=== PATIENT | male | born 1960 | race African-American/Black ===

== ENCOUNTER 2018-02-26 02:50 | Emergency (ER) | payer OTHER ==
[~2018-02-26] VITALS: Ht 172.7 cm; Wt 72.7 kg
[~2018-02-26 02:50] MED LIST: ALPR0.5T8 PO; AMLO-512 PO; ASPI81TA87 PO; ENAL20 PO; HUMLIS7525 SQ; INSNOV SQ
[2018-02-26 03:04] LABS: GLUCOSE,POINT OF CARE 130 MG/DL (70-110)
[2018-02-26] MEDS: KETOROLAC TROMETHAMINE 60 MG/2 ML VIAL IM ONE (05:23)
[2018-02-26 06:50] VITALS: BP 132/80
== END 2018-02-26 07:05 | disposition home or self-care (01) ==
LOC: EMS 02:50
DX: M25.551 Pain in right hip (principal); M25.552 Pain in left hip; R31.9 Hematuria, unspecified; F17.210 Nicotine dependence, cigarettes, uncomplicated; E11.9 Type 2 diabetes mellitus without complications; I10 Essential (primary) hypertension; Z88.2 Allergy status to sulfonamides; Z79.4 Long term (current) use of insulin
CPT/HCPCS: 81002; 82962; 96372; 99283; 99406; J1885

== ENCOUNTER 2019-03-10 21:42 | Emergency (ER) | payer OTHER ==
[~2019-03-10] VITALS: Ht 172.7 cm; Wt 63.6 kg
[~2019-03-10 21:42] MED LIST changes: -AMLO-512 PO; +AMLO10TA7 PO
[2019-03-10 22:04] LABS: GLUCOSE,POINT OF CARE 135 MG/DL (70-110)
[2019-03-10] MEDS ORDERED: ACETAMINOPHEN 325 MG TABLET PO ONE (22:15)
[2019-03-10 23:02] VITALS: BP 139/88
== END 2019-03-10 23:58 | disposition left against medical advice (07) ==
LOC: EMS 21:46
DX: R07.89 Other chest pain (principal); E11.9 Type 2 diabetes mellitus without complications; I10 Essential (primary) hypertension; F20.9 Schizophrenia, unspecified; F31.9 Bipolar disorder, unspecified; F41.9 Anxiety disorder, unspecified; F17.210 Nicotine dependence, cigarettes, uncomplicated; Z79.899 Other long term (current) drug therapy; Z79.4 Long term (current) use of insulin; Z88.2 Allergy status to sulfonamides
CPT/HCPCS: 93005; 99406

== ENCOUNTER 2022-08-02 11:43 | Inpatient (IN) | payer MEDICAID, OTHER ==
[~2022-08-02] VITALS: Ht 167.6 cm; Wt 49.0 kg
[~2022-08-02 11:43] MED LIST changes: +ALPR-707 PO; -ALPR0.5T8 PO; +AMLO-258 PO; -AMLO10TA7 PO
[2022-08-02] MEDS ORDERED: HALOPERIDOL LACTATE 5 MG/ML VIAL IM ONE (13:00)
[2022-08-02] MEDS ORDERED: DiphenhydrAMINE HCL 50 MG/ML VIAL IM ONE (13:00)
[2022-08-02] MEDS ORDERED: LORazepam 2 MG/ML VIAL IM ONE (13:00)
[2022-08-02 13:43] LABS: BASOPHILS % (AUTO) 0.4 % (0.0-2.0); EOSINOPHILS % (AUTO) 0.1 % (1.0-6.0); HEMATOCRIT 27.9 % (41-53); LYMPHOCYTES # (AUTO) 1.5 K/uL (1.0-4.8); LYMPHOCYTES % (AUTO) 13.7 % (22.0-44.0); MEAN CORPUSCULAR HEMOGLOBIN 27.7 pg (26.0-34.0); MEAN CORPUSCULAR HGB CONC 32.2 G/dL (31.0-37.0); MEAN CORPUSCULAR VOLUME 86 fL (80-100); MONOCYTES % (AUTO) 8.8 % (2.0-9.0); NEUTROPHILS # (AUTO) 8.6 K/uL (1.8-7.7); PLATELET COUNT (AUTO) 440 K/uL (150-450); RED BLOOD CELL COUNT(AUTO) 3.25 MIL/uL (4.50-5.90); RED CELL DISTRIBUTION WIDTH 15.8 % (11.5-14.5)
[2022-08-02 13:54] LABS: ANION GAP 8 mmol/L (8-16); CARBON DIOXIDE 26 mmol/L (22-29); CHLORIDE 107 mmol/L (98-107); CREATININE 1.72 mg/dL (0.60-1.30); GLOMERULAR FILTR. RATE CALC 49 mL/min (>60); GLUCOSE,RANDOM 83 mg/dL (70-110); POTASSIUM 4.3 mmol/L (3.5-5.1); SODIUM SERUM 141 mmol/L (136-145); UREA NITROGEN, BLOOD 44 mg/dL (7-18)
[2022-08-02 14:00] LABS: ALANINE AMINOTRANSFERASE 56 U/L (12-78); ALBUMIN 2.7 g/dL (3.4-5.0); ALKALINE PHOSPHATASE 282 U/L (46-116); ASPARTATE AMINOTRANSFERASE 78 U/L (15-37); BILIRUBIN,TOTAL 0.5 mg/dL (0.1-1.0); TOTAL PROTEIN, SERUM 7.3 g/dL (6.4-8.2)
[2022-08-02 14:12] LABS: COVID AG,FIA SOURCE NASAL SWAB
[2022-08-02 19:11] VITALS: BP 146/102
[2022-08-02 20:22] VITALS: BP 102/75
[2022-08-03] MEDS ORDERED: DOCUSATE SODIUM 100 MG CAPSULE PO PRN (07:15)
[2022-08-03] MEDS ORDERED: MAGNESIUM HYDROXIDE SUSPENSION 30 ML UDCUP PO PRN (07:15)
[2022-08-03] MEDS ORDERED: LOPERAMIDE HCL 2 MG CAPSULE PO PRN (07:15)
[2022-08-03] MEDS ORDERED: OMEPRAZOLE 20 MG CAPSULE PO PRN (07:15)
[2022-08-03] MEDS ORDERED: CloNIDine HCL 0.1 MG TABLET PO PRN (07:15)
[2022-08-03] MEDS ORDERED: BENZOCAINE/MENTHOL LOZENGE PO PRN (07:15)
[2022-08-03] MEDS ORDERED: PETROLATUM,WHITE 28 GM JELLY TP PRN (07:15)
[2022-08-03] MEDS ORDERED: BACITRACIN 28 GM OINTMENT TP PRN (07:15)
[2022-08-03] MEDS ORDERED: ALBUTEROL SULFATE HFA 90 MCG/PUFF 8 GM INHALER IH PRN (07:15)
[2022-08-03] MEDS ORDERED: ONDANSETRON HCL 4 MG TABLET PO PRN (07:15)
[2022-08-03] MEDS ORDERED: MAG HYDROX/AL HYDROX/SIMETH ES 30 ML SUSPENSION UDCUP PO PRN (07:15)
[2022-08-03] MEDS ORDERED: ACETAMINOPHEN 325 MG TABLET PO PRN (07:15)
[2022-08-03] MEDS: AmLODIPine BESYLATE 10 MG TABLET PO SCH (08:35)
[2022-08-03] MEDS: ENALAPRIL MALEATE 20 MG TABLET PO SCH (08:35)
[2022-08-03] MEDS: BACITRACIN 28 GM OINTMENT TP SCH (08:35)
[2022-08-03] MEDS: LORazepam 2 MG TABLET PO PRN (20:24)
[2022-08-03 20:28] VITALS: BP 104/62
[2022-08-04] MEDS: AmLODIPine BESYLATE 10 MG TABLET PO SCH (08:37)
[2022-08-04] MEDS: ENALAPRIL MALEATE 20 MG TABLET PO SCH (08:37)
[2022-08-04] MEDS: BACITRACIN 28 GM OINTMENT TP SCH (08:38)
[2022-08-04 09:35] VITALS: BP 139/89
[2022-08-04] MEDS: LORazepam 2 MG TABLET PO PRN (12:31)
[2022-08-04 20:00] VITALS: BP 108/64
[2022-08-04] MEDS: DIVALPROEX SODIUM 500 MG DR TABLET PO SCH (20:52)
[2022-08-04] MEDS: RisperiDONE 3 MG TABLET PO SCH (20:52)
[2022-08-05] MEDS: DIVALPROEX SODIUM 500 MG DR TABLET PO SCH ×2 (08:18→21:09)
[2022-08-05] MEDS: AmLODIPine BESYLATE 10 MG TABLET PO SCH (08:19)
[2022-08-05] MEDS: ENALAPRIL MALEATE 20 MG TABLET PO SCH (08:19)
[2022-08-05] MEDS: IBUPROFEN 600 MG TABLET PO PRN (08:19)
[2022-08-05] MEDS: RisperiDONE 3 MG TABLET PO SCH ×2 (08:19→21:09)
[2022-08-05] MEDS: BACITRACIN 28 GM OINTMENT TP SCH (08:21)
[2022-08-05 08:22] VITALS: BP 112/79
[2022-08-05] MEDS ORDERED: GLUCAGON,HUMAN RECOMBINANT 1 MG VIAL IM PRN (10:15)
[2022-08-05] MEDS ORDERED: INSULIN REGULAR, HUMAN 100 UNITS/ML SQ SCH (10:15)
[2022-08-05 10:16] LABS: GLUCOMETER DEV NAME(LOC) BV3N.; GLUCOSE,POINT OF CARE 555 MG/DL (70-110)
[2022-08-05] MEDS ORDERED: INSULIN LISPRO 100 UNITS/ML SQ ONE ×2 (10:30→15:15)
[2022-08-05 11:31] LABS: GLUCOMETER DEV NAME(LOC) BV3N.; GLUCOSE,POINT OF CARE 451 MG/DL (70-110)
[2022-08-05] MEDS: INSULIN LISPRO 100 UNITS/ML SQ PRN ×2 (12:10→21:16)
[2022-08-05] MEDS: HALOPERIDOL 5 MG TABLET PO PRN (17:06)
[2022-08-05 17:11] LABS: GLUCOMETER DEV NAME(LOC) BV3N.; GLUCOSE,POINT OF CARE 100 MG/DL (70-110)
[2022-08-05 20:29] VITALS: BP 108/67
[2022-08-05] MEDS ORDERED: INSULIN GLARGINE,HUM.REC.ANLOG 100 UNITS/ML SQ SCH (21:00)
[2022-08-05] MEDS: INSULIN GLARGINE,HUM.REC.ANLOG 100 UNITS/ML SQ SCH (21:17)
[2022-08-05 21:36] LABS: GLUCOMETER DEV NAME(LOC) BV3N.; GLUCOSE,POINT OF CARE 422 MG/DL (70-110)
[2022-08-06 06:11] LABS: GLUCOMETER DEV NAME(LOC) BV3N.; GLUCOSE,POINT OF CARE 159 MG/DL (70-110)
[2022-08-06] MEDS: INSULIN LISPRO 100 UNITS/ML SQ PRN ×3 (06:18→20:36)
[2022-08-06] MEDS: DIVALPROEX SODIUM 500 MG DR TABLET PO SCH ×2 (08:19→20:20)
[2022-08-06] MEDS: AmLODIPine BESYLATE 10 MG TABLET PO SCH (08:19)
[2022-08-06] MEDS: RisperiDONE 3 MG TABLET PO SCH ×2 (08:19→20:20)
[2022-08-06] MEDS: BACITRACIN 28 GM OINTMENT TP SCH (08:20)
[2022-08-06] MEDS: ENALAPRIL MALEATE 20 MG TABLET PO SCH (08:20)
[2022-08-06 10:11] VITALS: BP 112/64
[2022-08-06] MEDS: LACTOBAC ACID/BULG/BIFID/THERM TABLET PO SCH (14:00)
[2022-08-06] MEDS: CEPHALEXIN MONOHYDRATE 500 MG CAPSULE PO SCH ×2 (16:19→20:20)
[2022-08-06 16:26] LABS: GLUCOMETER DEV NAME(LOC) BV3N.; GLUCOSE,POINT OF CARE 501 MG/DL (70-110)
[2022-08-06] MEDS: LORazepam 2 MG TABLET PO PRN (20:33)
[2022-08-06] MEDS: ZOLPIDEM TARTRATE 10 MG TABLET PO PRN (20:33)
[2022-08-06] MEDS: INSULIN GLARGINE,HUM.REC.ANLOG 100 UNITS/ML SQ SCH (20:37)
[2022-08-06 21:16] LABS: GLUCOMETER DEV NAME(LOC) BV3N.; GLUCOSE,POINT OF CARE 235 MG/DL (70-110)
[2022-08-06] MEDS: TraMADol HCL 50 MG TABLET PO PRN (21:46)
[2022-08-07 05:16] LABS: GLUCOMETER DEV NAME(LOC) BV3N.; GLUCOSE,POINT OF CARE 197 MG/DL (70-110)
[2022-08-07] MEDS: INSULIN LISPRO 100 UNITS/ML SQ PRN (06:23)
[2022-08-07 07:46] LABS: ALANINE AMINOTRANSFERASE 43 U/L (12-78); ALBUMIN 2.3 g/dL (3.4-5.0); ALKALINE PHOSPHATASE 245 U/L (46-116); ANION GAP 10 mmol/L (8-16); ASPARTATE AMINOTRANSFERASE 35 U/L (15-37); BILIRUBIN,TOTAL 0.3 mg/dL (0.1-1.0); CALCIUM, TOTAL 8.8 mg/dL (8.8-10.5); CARBON DIOXIDE 23 mmol/L (22-29); CHLORIDE 104 mmol/L (98-107); CHOL/HDL RATIO 1.7 (4.2-7.3); CHOLESTEROL 137 mg/dL (131-200); CREATININE 1.35 mg/dL (0.60-1.30); FREE T4 (FREE THYROXINE) 1.17 ng/dL (0.76-1.46); GLOMERULAR FILTR. RATE CALC > 60 mL/min (>60); GLUCOSE,RANDOM 183 mg/dL (70-110); HDL CHOLESTEROL 81 mg/dL (40-60); LDL CHOL (CALC.) 50 mg/dL (0-130); PHOSPHORUS 3.3 mg/dL (2.5-4.9); POTASSIUM 4.3 mmol/L (3.5-5.1); SODIUM SERUM 137 mmol/L (136-145); THYROID STIMULATING HORMONE 4.18 uIU/mL (0.36-3.74); TOTAL PROTEIN, SERUM 7.2 g/dL (6.4-8.2); TRIGLYCERIDES 29 mg/dL (15-150); UREA NITROGEN, BLOOD 34 mg/dL (7-18)
[2022-08-07] MEDS: BACITRACIN 28 GM OINTMENT TP SCH (08:21)
[2022-08-07] MEDS: ENALAPRIL MALEATE 20 MG TABLET PO SCH (08:21)
[2022-08-07] MEDS: RisperiDONE 3 MG TABLET PO SCH ×2 (08:21→20:09)
[2022-08-07] MEDS: LACTOBAC ACID/BULG/BIFID/THERM TABLET PO SCH (08:21)
[2022-08-07] MEDS: DIVALPROEX SODIUM 500 MG DR TABLET PO SCH ×2 (08:21→20:09)
[2022-08-07] MEDS: AmLODIPine BESYLATE 10 MG TABLET PO SCH (08:21)
[2022-08-07] MEDS: CEPHALEXIN MONOHYDRATE 500 MG CAPSULE PO SCH ×4 (08:21→20:09)
[2022-08-07 09:21] VITALS: BP 138/78
[2022-08-07 20:03] VITALS: BP 118/66
[2022-08-07 20:52] LABS: GLUCOMETER DEV NAME(LOC) BV3N.; GLUCOSE,POINT OF CARE 498 MG/DL (70-110)
[2022-08-07] MEDS: INSULIN GLARGINE,HUM.REC.ANLOG 100 UNITS/ML SQ SCH (20:55)
[2022-08-07] MEDS ORDERED: INSULIN LISPRO 100 UNITS/ML SQ ONE (21:15)
[2022-08-08 06:31] LABS: GLUCOMETER DEV NAME(LOC) BV3N.; GLUCOSE,POINT OF CARE 100 MG/DL (70-110)
[2022-08-08] MEDS: LEVOTHYROXINE SODIUM 100 MCG TABLET PO SCH (06:41)
[2022-08-08] MEDS: INSULIN LISPRO 100 UNITS/ML SQ SCH ×3 (06:49→16:19)
[2022-08-08 08:17] LABS: ALBUMIN 2.3 g/dL (3.4-5.0); BILIRUBIN,TOTAL 0.2 mg/dL (0.1-1.0); CALCIUM, TOTAL 9.4 mg/dL (8.8-10.5); CREATININE 1.44 mg/dL (0.60-1.30); POTASSIUM 4.4 mmol/L (3.5-5.1); TOTAL PROTEIN, SERUM 7.6 g/dL (6.4-8.2)
[2022-08-08] MEDS: CEPHALEXIN MONOHYDRATE 500 MG CAPSULE PO SCH ×4 (09:03→20:36)
[2022-08-08] MEDS: MULTIVITAMINS WITH MINERALS, THERAPEUTIC TABLET PO SCH (09:03)
[2022-08-08] MEDS: DIVALPROEX SODIUM 500 MG DR TABLET PO SCH ×2 (09:03→20:36)
[2022-08-08] MEDS: ENALAPRIL MALEATE 20 MG TABLET PO SCH (09:03)
[2022-08-08] MEDS: LACTOBAC ACID/BULG/BIFID/THERM TABLET PO SCH (09:03)
[2022-08-08] MEDS: AmLODIPine BESYLATE 10 MG TABLET PO SCH (09:04)
[2022-08-08] MEDS: RisperiDONE 3 MG TABLET PO SCH ×2 (09:04→20:36)
[2022-08-08] MEDS: BACITRACIN 28 GM OINTMENT TP SCH (09:05)
[2022-08-08 09:41] LABS: GLUCOMETER DEV NAME(LOC) POC.BV
[2022-08-08 09:49] VITALS: BP 104/67
[2022-08-08] MEDS: INSULIN LISPRO 100 UNITS/ML SQ PRN ×3 (11:09→20:38)
[2022-08-08 11:21] LABS: GLUCOMETER DEV NAME(LOC) BV3N.; GLUCOSE,POINT OF CARE 278 MG/DL (70-110)
[2022-08-08 16:51] LABS: GLUCOMETER DEV NAME(LOC) BV3N.; GLUCOSE,POINT OF CARE 129 MG/DL (70-110)
[2022-08-08] MEDS: LORazepam 2 MG TABLET PO PRN (20:36)
[2022-08-08] MEDS: INSULIN GLARGINE,HUM.REC.ANLOG 100 UNITS/ML SQ SCH (20:38)
[2022-08-08 20:51] LABS: GLUCOMETER DEV NAME(LOC) BV3N.; GLUCOSE,POINT OF CARE 207 MG/DL (70-110)
[2022-08-08 21:00] VITALS: BP 110/73
[2022-08-09 06:21] LABS: GLUCOMETER DEV NAME(LOC) BV3N.; GLUCOSE,POINT OF CARE 117 MG/DL (70-110)
[2022-08-09] MEDS: LEVOTHYROXINE SODIUM 100 MCG TABLET PO SCH (06:25)
[2022-08-09] MEDS: INSULIN LISPRO 100 UNITS/ML SQ SCH ×3 (06:43→17:08)
[2022-08-09] MEDS: RisperiDONE 3 MG TABLET PO SCH ×2 (08:22→20:54)
[2022-08-09] MEDS: DIVALPROEX SODIUM 500 MG DR TABLET PO SCH ×2 (08:22→20:54)
[2022-08-09] MEDS: CEPHALEXIN MONOHYDRATE 500 MG CAPSULE PO SCH ×4 (08:22→20:54)
[2022-08-09] MEDS: AmLODIPine BESYLATE 10 MG TABLET PO SCH (08:22)
[2022-08-09] MEDS: MULTIVITAMINS WITH MINERALS, THERAPEUTIC TABLET PO SCH (08:22)
[2022-08-09] MEDS: ENALAPRIL MALEATE 20 MG TABLET PO SCH (08:23)
[2022-08-09] MEDS: LACTOBAC ACID/BULG/BIFID/THERM TABLET PO SCH (08:23)
[2022-08-09] MEDS: BACITRACIN 28 GM OINTMENT TP SCH (08:24)
[2022-08-09 08:48] VITALS: BP 135/75
[2022-08-09] MEDS: INSULIN LISPRO 100 UNITS/ML SQ PRN ×2 (11:26→20:58)
[2022-08-09 11:36] LABS: GLUCOMETER DEV NAME(LOC) BV3N.; GLUCOSE,POINT OF CARE 166 MG/DL (70-110)
[2022-08-09 17:21] LABS: GLUCOMETER DEV NAME(LOC) BV3N.; GLUCOSE,POINT OF CARE 93 MG/DL (70-110)
[2022-08-09] MEDS: LORazepam 2 MG TABLET PO PRN (20:54)
[2022-08-09] MEDS: INSULIN GLARGINE,HUM.REC.ANLOG 100 UNITS/ML SQ SCH (20:58)
[2022-08-09 21:39] VITALS: BP 115/62
[2022-08-09 22:01] LABS: GLUCOMETER DEV NAME(LOC) BV3N.; GLUCOSE,POINT OF CARE 139 MG/DL (70-110)
[2022-08-09] MEDS ORDERED: LORazepam 2 MG/ML VIAL IM ONE (23:15)
[2022-08-09] MEDS ORDERED: ChlorproMAZINE HCL 50 MG/2 ML AMP IM ONE (23:15)
[2022-08-09] MEDS ORDERED: DiphenhydrAMINE HCL 50 MG/ML VIAL IM ONE (23:15)
[2022-08-10] MEDS: INSULIN LISPRO 100 UNITS/ML SQ SCH ×3 (06:30→16:30)
[2022-08-10 06:31] LABS: GLUCOMETER DEV NAME(LOC) BV3N.; GLUCOSE,POINT OF CARE 104 MG/DL (70-110)
[2022-08-10] MEDS: LEVOTHYROXINE SODIUM 100 MCG TABLET PO SCH (06:33)
[2022-08-10] MEDS: LACTOBAC ACID/BULG/BIFID/THERM TABLET PO SCH (08:30)
[2022-08-10] MEDS: MULTIVITAMINS WITH MINERALS, THERAPEUTIC TABLET PO SCH (08:30)
[2022-08-10] MEDS: RisperiDONE 3 MG TABLET PO SCH ×2 (08:30→20:02)
[2022-08-10] MEDS: ENALAPRIL MALEATE 20 MG TABLET PO SCH (08:30)
[2022-08-10] MEDS: DIVALPROEX SODIUM 500 MG DR TABLET PO SCH ×2 (08:30→20:02)
[2022-08-10] MEDS: CEPHALEXIN MONOHYDRATE 500 MG CAPSULE PO SCH ×4 (08:30→20:02)
[2022-08-10] MEDS: AmLODIPine BESYLATE 10 MG TABLET PO SCH (08:30)
[2022-08-10] MEDS: BACITRACIN 28 GM OINTMENT TP SCH (08:31)
[2022-08-10 08:36] VITALS: BP 149/81
[2022-08-10 11:46] LABS: GLUCOMETER DEV NAME(LOC) BV3N.; GLUCOSE,POINT OF CARE 37 MG/DL (70-110)
[2022-08-10 12:01] LABS: GLUCOMETER DEV NAME(LOC) BV3N.; GLUCOSE,POINT OF CARE 63 MG/DL (70-110)
[2022-08-10 12:51] LABS: GLUCOMETER DEV NAME(LOC) BV3N.; GLUCOSE,POINT OF CARE 144 MG/DL (70-110)
[2022-08-10] MEDS: INSULIN LISPRO 100 UNITS/ML SQ PRN (16:42)
[2022-08-10 17:01] LABS: GLUCOMETER DEV NAME(LOC) BV3N.; GLUCOSE,POINT OF CARE 445 MG/DL (70-110)
[2022-08-10] MEDS: INSULIN GLARGINE,HUM.REC.ANLOG 100 UNITS/ML SQ SCH (20:02)
[2022-08-10 20:11] LABS: GLUCOMETER DEV NAME(LOC) BV3N.; GLUCOSE,POINT OF CARE 121 MG/DL (70-110)
[2022-08-10 20:35] VITALS: BP 116/61
[2022-08-11 06:16] LABS: GLUCOMETER DEV NAME(LOC) BV3N.; GLUCOSE,POINT OF CARE 248 MG/DL (70-110)
[2022-08-11] MEDS: LEVOTHYROXINE SODIUM 100 MCG TABLET PO SCH (06:43)
[2022-08-11] MEDS: INSULIN LISPRO 100 UNITS/ML SQ SCH ×3 (06:58→16:31)
[2022-08-11] MEDS: INSULIN LISPRO 100 UNITS/ML SQ PRN ×3 (07:06→20:36)
[2022-08-11] MEDS: ENALAPRIL MALEATE 20 MG TABLET PO SCH (08:22)
[2022-08-11] MEDS: AmLODIPine BESYLATE 10 MG TABLET PO SCH (08:22)
[2022-08-11] MEDS: CEPHALEXIN MONOHYDRATE 500 MG CAPSULE PO SCH ×4 (08:22→20:34)
[2022-08-11] MEDS: LACTOBAC ACID/BULG/BIFID/THERM TABLET PO SCH (08:22)
[2022-08-11] MEDS: DIVALPROEX SODIUM 500 MG DR TABLET PO SCH ×2 (08:22→20:34)
[2022-08-11] MEDS: RisperiDONE 3 MG TABLET PO SCH ×2 (08:22→20:34)
[2022-08-11] MEDS: MULTIVITAMINS WITH MINERALS, THERAPEUTIC TABLET PO SCH (08:22)
[2022-08-11] MEDS: BACITRACIN 28 GM OINTMENT TP SCH (08:23)
[2022-08-11 08:51] VITALS: BP 107/60
[2022-08-11 11:16] LABS: GLUCOMETER DEV NAME(LOC) BV3N.; GLUCOSE,POINT OF CARE 117 MG/DL (70-110)
[2022-08-11 17:16] LABS: GLUCOMETER DEV NAME(LOC) BV3N.; GLUCOSE,POINT OF CARE 275 MG/DL (70-110)
[2022-08-11] MEDS: IBUPROFEN 600 MG TABLET PO PRN (17:52)
[2022-08-11] MEDS: LORazepam 2 MG TABLET PO PRN (17:52)
[2022-08-11 20:00] VITALS: BP 140/70
[2022-08-11] MEDS: INSULIN GLARGINE,HUM.REC.ANLOG 100 UNITS/ML SQ SCH (20:36)
[2022-08-11 20:51] LABS: GLUCOMETER DEV NAME(LOC) BV3N.; GLUCOSE,POINT OF CARE 187 MG/DL (70-110)
[2022-08-12 06:21] LABS: GLUCOMETER DEV NAME(LOC) BV3N.; GLUCOSE,POINT OF CARE 114 MG/DL (70-110)
[2022-08-12] MEDS: LEVOTHYROXINE SODIUM 100 MCG TABLET PO SCH (06:31)
[2022-08-12] MEDS: INSULIN LISPRO 100 UNITS/ML SQ SCH ×3 (06:56→17:23)
[2022-08-12] MEDS: CEPHALEXIN MONOHYDRATE 500 MG CAPSULE PO SCH ×4 (08:08→20:50)
[2022-08-12] MEDS: MULTIVITAMINS WITH MINERALS, THERAPEUTIC TABLET PO SCH (08:08)
[2022-08-12] MEDS: LACTOBAC ACID/BULG/BIFID/THERM TABLET PO SCH (08:08)
[2022-08-12] MEDS: RisperiDONE 3 MG TABLET PO SCH ×2 (08:09→20:50)
[2022-08-12] MEDS: AmLODIPine BESYLATE 10 MG TABLET PO SCH (08:09)
[2022-08-12] MEDS: ENALAPRIL MALEATE 20 MG TABLET PO SCH (08:09)
[2022-08-12] MEDS: BACITRACIN 28 GM OINTMENT TP SCH (08:09)
[2022-08-12] MEDS: DIVALPROEX SODIUM 500 MG DR TABLET PO SCH ×2 (08:09→20:50)
[2022-08-12 09:12] VITALS: BP 127/68
[2022-08-12 11:31] LABS: GLUCOMETER DEV NAME(LOC) BV3N.; GLUCOSE,POINT OF CARE 121 MG/DL (70-110)
[2022-08-12 16:19] VITALS: BP 113/63
[2022-08-12] MEDS: INSULIN LISPRO 100 UNITS/ML SQ PRN ×2 (17:23→20:53)
[2022-08-12 17:31] LABS: GLUCOMETER DEV NAME(LOC) BV3N.; GLUCOSE,POINT OF CARE 249 MG/DL (70-110)
[2022-08-12 20:00] VITALS: BP 130/78
[2022-08-12] MEDS: INSULIN GLARGINE,HUM.REC.ANLOG 100 UNITS/ML SQ SCH (20:53)
[2022-08-12 21:17] LABS: GLUCOMETER DEV NAME(LOC) BV3N.; GLUCOSE,POINT OF CARE 218 MG/DL (70-110)
[2022-08-13 06:16] LABS: GLUCOMETER DEV NAME(LOC) BV3N.; GLUCOSE,POINT OF CARE 238 MG/DL (70-110)
[2022-08-13] MEDS: LEVOTHYROXINE SODIUM 100 MCG TABLET PO SCH (06:32)
[2022-08-13] MEDS: INSULIN LISPRO 100 UNITS/ML SQ SCH ×3 (06:36→16:31)
[2022-08-13] MEDS: INSULIN LISPRO 100 UNITS/ML SQ PRN ×4 (06:40→20:52)
[2022-08-13 07:47] LABS: EOSINOPHILS % (AUTO) 0.7 % (1.0-6.0); LYMPHOCYTES # (AUTO) 2.5 K/uL (1.0-4.8); MEAN CORPUSCULAR HEMOGLOBIN 28.4 pg (26.0-34.0); MEAN CORPUSCULAR HGB CONC 32.2 G/dL (31.0-37.0); MEAN CORPUSCULAR VOLUME 88 fL (80-100); MONOCYTES # (AUTO) 1.1 K/uL (0.1-1.0); MONOCYTES % (AUTO) 10.2 % (2.0-9.0); NEUTROPHILS # (AUTO) 6.6 K/uL (1.8-7.7); NEUTROPHILS % (AUTO) 64.1 % (40.0-70.0); PLATELET COUNT (AUTO) 286 K/uL (150-450); RED BLOOD CELL COUNT(AUTO) 3.18 MIL/uL (4.50-5.90); RED CELL DISTRIBUTION WIDTH 16.8 % (11.5-14.5)
[2022-08-13 08:03] LABS: ALBUMIN 2.4 g/dL (3.4-5.0); BILIRUBIN,TOTAL 0.1 mg/dL (0.1-1.0); CALCIUM, TOTAL 8.9 mg/dL (8.8-10.5); CREATININE 1.47 mg/dL (0.60-1.30); PHOSPHORUS 3.4 mg/dL (2.5-4.9); POTASSIUM 4.7 mmol/L (3.5-5.1)
[2022-08-13] MEDS: ENALAPRIL MALEATE 20 MG TABLET PO SCH (08:15)
[2022-08-13] MEDS: LACTOBAC ACID/BULG/BIFID/THERM TABLET PO SCH (08:15)
[2022-08-13] MEDS: AmLODIPine BESYLATE 10 MG TABLET PO SCH (08:15)
[2022-08-13] MEDS: MULTIVITAMINS WITH MINERALS, THERAPEUTIC TABLET PO SCH (08:15)
[2022-08-13] MEDS: CEPHALEXIN MONOHYDRATE 500 MG CAPSULE PO SCH ×4 (08:15→20:50)
[2022-08-13] MEDS: RisperiDONE 3 MG TABLET PO SCH ×2 (08:15→20:50)
[2022-08-13] MEDS: DIVALPROEX SODIUM 500 MG DR TABLET PO SCH ×2 (08:15→20:50)
[2022-08-13 08:26] VITALS: BP 107/64
[2022-08-13 11:41] LABS: GLUCOMETER DEV NAME(LOC) BV3N.; GLUCOSE,POINT OF CARE 159 MG/DL (70-110)
[2022-08-13 16:36] LABS: GLUCOMETER DEV NAME(LOC) BV3N.; GLUCOSE,POINT OF CARE 257 MG/DL (70-110)
[2022-08-13] MEDS: LORazepam 2 MG TABLET PO PRN (20:50)
[2022-08-13] MEDS: INSULIN GLARGINE,HUM.REC.ANLOG 100 UNITS/ML SQ SCH (20:52)
[2022-08-13 21:05] VITALS: BP 115/65
[2022-08-13 21:06] LABS: GLUCOMETER DEV NAME(LOC) BV3N.; GLUCOSE,POINT OF CARE 201 MG/DL (70-110)
[2022-08-13] MEDS: ZOLPIDEM TARTRATE 10 MG TABLET PO PRN (23:53)
[2022-08-13] MEDS: HALOPERIDOL 5 MG TABLET PO PRN (23:54)
[2022-08-14] MEDS: LEVOTHYROXINE SODIUM 100 MCG TABLET PO SCH (06:01)
[2022-08-14 06:06] LABS: GLUCOMETER DEV NAME(LOC) BV3N.; GLUCOSE,POINT OF CARE 138 MG/DL (70-110)
[2022-08-14] MEDS: INSULIN LISPRO 100 UNITS/ML SQ PRN ×3 (06:33→20:27)
[2022-08-14] MEDS: INSULIN LISPRO 100 UNITS/ML SQ SCH ×4 (06:33→16:30)
[2022-08-14] MEDS: RisperiDONE 3 MG TABLET PO SCH ×2 (08:19→20:24)
[2022-08-14] MEDS: AmLODIPine BESYLATE 10 MG TABLET PO SCH (08:19)
[2022-08-14] MEDS: ENALAPRIL MALEATE 20 MG TABLET PO SCH (08:19)
[2022-08-14] MEDS: LACTOBAC ACID/BULG/BIFID/THERM TABLET PO SCH (08:19)
[2022-08-14] MEDS: DIVALPROEX SODIUM 500 MG DR TABLET PO SCH ×2 (08:19→20:24)
[2022-08-14] MEDS: CEPHALEXIN MONOHYDRATE 500 MG CAPSULE PO SCH ×4 (08:19→20:24)
[2022-08-14] MEDS: MULTIVITAMINS WITH MINERALS, THERAPEUTIC TABLET PO SCH (08:19)
[2022-08-14 09:42] VITALS: BP 124/68
[2022-08-14 11:41] LABS: GLUCOMETER DEV NAME(LOC) BV3N.; GLUCOSE,POINT OF CARE 178 MG/DL (70-110)
[2022-08-14] MEDS: TraMADol HCL 50 MG TABLET PO PRN (19:55)
[2022-08-14 20:16] LABS: GLUCOMETER DEV NAME(LOC) BV3N.; GLUCOSE,POINT OF CARE 290 MG/DL (70-110)
[2022-08-14] MEDS: INSULIN GLARGINE,HUM.REC.ANLOG 100 UNITS/ML SQ SCH (20:27)
[2022-08-14 20:38] VITALS: BP 108/74
[2022-08-15] MEDS: LEVOTHYROXINE SODIUM 100 MCG TABLET PO SCH (06:24)
[2022-08-15] MEDS: INSULIN LISPRO 100 UNITS/ML SQ SCH ×3 (06:26→16:38)
[2022-08-15 07:06] LABS: GLUCOMETER DEV NAME(LOC) BV3N.; GLUCOSE,POINT OF CARE 96 MG/DL (70-110)
[2022-08-15 08:16] VITALS: BP 109/55
[2022-08-15 08:51] LABS: GLUCOMETER DEV NAME(LOC) POC.BV
[2022-08-15] MEDS: DIVALPROEX SODIUM 500 MG DR TABLET PO SCH ×2 (09:08→20:44)
[2022-08-15] MEDS: ENALAPRIL MALEATE 20 MG TABLET PO SCH (09:08)
[2022-08-15] MEDS: MULTIVITAMINS WITH MINERALS, THERAPEUTIC TABLET PO SCH (09:08)
[2022-08-15] MEDS: LACTOBAC ACID/BULG/BIFID/THERM TABLET PO SCH (09:08)
[2022-08-15] MEDS: AmLODIPine BESYLATE 10 MG TABLET PO SCH (09:08)
[2022-08-15] MEDS: RisperiDONE 3 MG TABLET PO SCH ×2 (09:08→20:44)
[2022-08-15] MEDS: CEPHALEXIN MONOHYDRATE 500 MG CAPSULE PO SCH ×4 (09:09→20:44)
[2022-08-15 11:36] LABS: GLUCOMETER DEV NAME(LOC) BV3N.; GLUCOSE,POINT OF CARE 193 MG/DL (70-110)
[2022-08-15] MEDS: INSULIN LISPRO 100 UNITS/ML SQ PRN ×3 (11:44→21:01)
[2022-08-15 16:51] LABS: GLUCOMETER DEV NAME(LOC) BV3N.; GLUCOSE,POINT OF CARE 192 MG/DL (70-110)
[2022-08-15 20:25] VITALS: BP 116/69
[2022-08-15 20:31] LABS: GLUCOMETER DEV NAME(LOC) BV3N.; GLUCOSE,POINT OF CARE 167 MG/DL (70-110)
[2022-08-15] MEDS: INSULIN GLARGINE,HUM.REC.ANLOG 100 UNITS/ML SQ SCH (20:56)
[2022-08-15 21:07] VITALS: BP 124/78
[2022-08-15] MEDS: TraMADol HCL 50 MG TABLET PO PRN (21:07)
[2022-08-15] MEDS: ZOLPIDEM TARTRATE 10 MG TABLET PO PRN (22:10)
[2022-08-15] MEDS: LORazepam 2 MG TABLET PO PRN (22:40)
[2022-08-16] MEDS: INSULIN LISPRO 100 UNITS/ML SQ SCH ×3 (06:30→16:50)
[2022-08-16] MEDS: LEVOTHYROXINE SODIUM 100 MCG TABLET PO SCH (06:43)
[2022-08-16 06:50] LABS: GLUCOMETER DEV NAME(LOC) BV3N.; GLUCOSE,POINT OF CARE 80 MG/DL (70-110)
[2022-08-16 08:27] VITALS: BP 120/69
[2022-08-16] MEDS: RisperiDONE 3 MG TABLET PO SCH ×2 (10:29→20:48)
[2022-08-16] MEDS: DIVALPROEX SODIUM 500 MG DR TABLET PO SCH ×2 (10:29→20:48)
[2022-08-16] MEDS: LACTOBAC ACID/BULG/BIFID/THERM TABLET PO SCH (10:29)
[2022-08-16] MEDS: CEPHALEXIN MONOHYDRATE 500 MG CAPSULE PO SCH ×2 (10:29→13:00)
[2022-08-16] MEDS: AmLODIPine BESYLATE 10 MG TABLET PO SCH (10:29)
[2022-08-16] MEDS: ENALAPRIL MALEATE 20 MG TABLET PO SCH (10:30)
[2022-08-16] MEDS: MULTIVITAMINS WITH MINERALS, THERAPEUTIC TABLET PO SCH (10:31)
[2022-08-16 12:21] LABS: GLUCOMETER DEV NAME(LOC) BV3N.; GLUCOSE,POINT OF CARE 117 MG/DL (70-110)
[2022-08-16 17:31] LABS: GLUCOMETER DEV NAME(LOC) BV3N.; GLUCOSE,POINT OF CARE 109 MG/DL (70-110)
[2022-08-16 20:41] VITALS: BP 120/74
[2022-08-16] MEDS: INSULIN LISPRO 100 UNITS/ML SQ PRN (20:51)
[2022-08-16] MEDS: INSULIN GLARGINE,HUM.REC.ANLOG 100 UNITS/ML SQ SCH (20:51)
[2022-08-16 22:01] LABS: GLUCOMETER DEV NAME(LOC) BV3N.; GLUCOSE,POINT OF CARE 123 MG/DL (70-110)
[2022-08-17 06:06] LABS: GLUCOMETER DEV NAME(LOC) BV3N.; GLUCOSE,POINT OF CARE 98 MG/DL (70-110)
[2022-08-17] MEDS: LEVOTHYROXINE SODIUM 100 MCG TABLET PO SCH (06:38)
[2022-08-17] MEDS: INSULIN LISPRO 100 UNITS/ML SQ SCH ×3 (06:45→17:00)
[2022-08-17] MEDS: AmLODIPine BESYLATE 10 MG TABLET PO SCH (09:06)
[2022-08-17] MEDS: ENALAPRIL MALEATE 20 MG TABLET PO SCH (09:06)
[2022-08-17] MEDS: DIVALPROEX SODIUM 500 MG DR TABLET PO SCH ×2 (09:06→20:52)
[2022-08-17] MEDS: RisperiDONE 3 MG TABLET PO SCH ×2 (09:06→20:52)
[2022-08-17] MEDS: MULTIVITAMINS WITH MINERALS, THERAPEUTIC TABLET PO SCH (09:06)
[2022-08-17] MEDS: LACTOBAC ACID/BULG/BIFID/THERM TABLET PO SCH (09:06)
[2022-08-17 11:51] LABS: GLUCOMETER DEV NAME(LOC) BV3N.; GLUCOSE,POINT OF CARE 202 MG/DL (70-110)
[2022-08-17 20:20] VITALS: BP 127/67
[2022-08-17] MEDS: INSULIN LISPRO 100 UNITS/ML SQ PRN (20:49)
[2022-08-17] MEDS: INSULIN GLARGINE,HUM.REC.ANLOG 100 UNITS/ML SQ SCH (20:51)
[2022-08-17 20:52] LABS: GLUCOMETER DEV NAME(LOC) BV3N.; GLUCOSE,POINT OF CARE 297 MG/DL (70-110)
[2022-08-17] MEDS: TraMADol HCL 50 MG TABLET PO PRN (21:17)
[2022-08-17] MEDS: LORazepam 2 MG TABLET PO PRN (21:17)
[2022-08-18 06:26] LABS: GLUCOMETER DEV NAME(LOC) BV3N.; GLUCOSE,POINT OF CARE 74 MG/DL (70-110)
[2022-08-18] MEDS: INSULIN LISPRO 100 UNITS/ML SQ SCH ×3 (07:09→16:31)
[2022-08-18] MEDS: LEVOTHYROXINE SODIUM 100 MCG TABLET PO SCH (07:15)
[2022-08-18 08:47] VITALS: BP 102/61
[2022-08-18] MEDS: MULTIVITAMINS WITH MINERALS, THERAPEUTIC TABLET PO SCH ×2 (09:00→11:03)
[2022-08-18] MEDS: LACTOBAC ACID/BULG/BIFID/THERM TABLET PO SCH ×2 (09:00→11:03)
[2022-08-18] MEDS: ENALAPRIL MALEATE 20 MG TABLET PO SCH ×2 (09:00→11:03)
[2022-08-18] MEDS: DIVALPROEX SODIUM 500 MG DR TABLET PO SCH ×3 (09:00→20:57)
[2022-08-18] MEDS: RisperiDONE 3 MG TABLET PO SCH ×3 (09:00→20:57)
[2022-08-18] MEDS: AmLODIPine BESYLATE 10 MG TABLET PO SCH ×2 (09:00→11:04)
[2022-08-18 11:03] VITALS: BP 121/70
[2022-08-18 11:15] VITALS: BP 117/74
[2022-08-18] MEDS: TraMADol HCL 50 MG TABLET PO PRN (11:18)
[2022-08-18 12:31] LABS: GLUCOMETER DEV NAME(LOC) BV3N.; GLUCOSE,POINT OF CARE 118 MG/DL (70-110)
[2022-08-18] MEDS: INSULIN LISPRO 100 UNITS/ML SQ PRN (16:31)
[2022-08-18 17:31] LABS: GLUCOMETER DEV NAME(LOC) BV3N.; GLUCOSE,POINT OF CARE 139 MG/DL (70-110)
[2022-08-18] MEDS: INSULIN GLARGINE,HUM.REC.ANLOG 100 UNITS/ML SQ SCH (20:59)
[2022-08-18 21:21] LABS: GLUCOMETER DEV NAME(LOC) BV3N.; GLUCOSE,POINT OF CARE 103 MG/DL (70-110)
[2022-08-19] MEDS: LEVOTHYROXINE SODIUM 100 MCG TABLET PO SCH (06:30)
[2022-08-19] MEDS: INSULIN LISPRO 100 UNITS/ML SQ SCH ×3 (06:42→16:30)
[2022-08-19 06:51] LABS: GLUCOMETER DEV NAME(LOC) BV3N.; GLUCOSE,POINT OF CARE 76 MG/DL (70-110)
[2022-08-19 08:07] VITALS: BP 130/78
[2022-08-19] MEDS: LACTOBAC ACID/BULG/BIFID/THERM TABLET PO SCH (08:08)
[2022-08-19] MEDS: ENALAPRIL MALEATE 20 MG TABLET PO SCH (08:08)
[2022-08-19] MEDS: RisperiDONE 3 MG TABLET PO SCH ×2 (08:08→20:19)
[2022-08-19] MEDS: AmLODIPine BESYLATE 10 MG TABLET PO SCH (08:08)
[2022-08-19] MEDS: DIVALPROEX SODIUM 500 MG DR TABLET PO SCH ×2 (08:08→20:19)
[2022-08-19] MEDS: MULTIVITAMINS WITH MINERALS, THERAPEUTIC TABLET PO SCH (08:09)
[2022-08-19] MEDS: INSULIN LISPRO 100 UNITS/ML SQ PRN ×2 (11:12→20:46)
[2022-08-19 11:21] LABS: GLUCOMETER DEV NAME(LOC) BV3N.; GLUCOSE,POINT OF CARE 144 MG/DL (70-110)
[2022-08-19 20:07] VITALS: BP 118/66
[2022-08-19] MEDS: IBUPROFEN 600 MG TABLET PO PRN ×2 (20:25→20:28)
[2022-08-19] MEDS: LORazepam 2 MG TABLET PO PRN (20:25)
[2022-08-19] MEDS: TraMADol HCL 50 MG TABLET PO PRN (20:33)
[2022-08-19] MEDS: INSULIN GLARGINE,HUM.REC.ANLOG 100 UNITS/ML SQ SCH (20:43)
[2022-08-19 20:51] LABS: GLUCOMETER DEV NAME(LOC) BV3N.; GLUCOSE,POINT OF CARE 200 MG/DL (70-110)
[2022-08-20] MEDS: LEVOTHYROXINE SODIUM 100 MCG TABLET PO SCH (06:52)
[2022-08-20] MEDS: INSULIN LISPRO 100 UNITS/ML SQ SCH ×3 (07:04→16:12)
[2022-08-20 07:16] LABS: GLUCOMETER DEV NAME(LOC) BV3N.; GLUCOSE,POINT OF CARE 117 MG/DL (70-110)
[2022-08-20] MEDS: DIVALPROEX SODIUM 500 MG DR TABLET PO SCH ×2 (08:05→20:12)
[2022-08-20] MEDS: MULTIVITAMINS WITH MINERALS, THERAPEUTIC TABLET PO SCH (08:05)
[2022-08-20] MEDS: RisperiDONE 3 MG TABLET PO SCH ×2 (08:05→20:12)
[2022-08-20] MEDS: LACTOBAC ACID/BULG/BIFID/THERM TABLET PO SCH (08:05)
[2022-08-20] MEDS: AmLODIPine BESYLATE 10 MG TABLET PO SCH (08:05)
[2022-08-20] MEDS: ENALAPRIL MALEATE 20 MG TABLET PO SCH (08:05)
[2022-08-20 08:11] VITALS: BP 124/82
[2022-08-20] MEDS: INSULIN LISPRO 100 UNITS/ML SQ PRN (11:09)
[2022-08-20 11:21] LABS: GLUCOMETER DEV NAME(LOC) BV3N.; GLUCOSE,POINT OF CARE 254 MG/DL (70-110)
[2022-08-20] MEDS: TraMADol HCL 50 MG TABLET PO PRN (19:40)
[2022-08-20] MEDS: INSULIN GLARGINE,HUM.REC.ANLOG 100 UNITS/ML SQ SCH (21:00)
[2022-08-21 06:26] LABS: GLUCOMETER DEV NAME(LOC) BV3N.; GLUCOSE,POINT OF CARE 92 MG/DL (70-110)
[2022-08-21] MEDS: LEVOTHYROXINE SODIUM 100 MCG TABLET PO SCH (06:27)
[2022-08-21] MEDS: INSULIN LISPRO 100 UNITS/ML SQ SCH ×3 (06:29→16:30)
[2022-08-21] MEDS: ENALAPRIL MALEATE 20 MG TABLET PO SCH (08:12)
[2022-08-21] MEDS: RisperiDONE 3 MG TABLET PO SCH ×2 (08:12→20:17)
[2022-08-21] MEDS: LACTOBAC ACID/BULG/BIFID/THERM TABLET PO SCH (08:12)
[2022-08-21] MEDS: MULTIVITAMINS WITH MINERALS, THERAPEUTIC TABLET PO SCH (08:12)
[2022-08-21] MEDS: DIVALPROEX SODIUM 500 MG DR TABLET PO SCH ×2 (08:12→20:16)
[2022-08-21] MEDS: AmLODIPine BESYLATE 10 MG TABLET PO SCH (08:12)
[2022-08-21 08:49] VITALS: BP 123/73
[2022-08-21 11:11] LABS: GLUCOMETER DEV NAME(LOC) BV3N.; GLUCOSE,POINT OF CARE 175 MG/DL (70-110)
[2022-08-21 16:31] LABS: GLUCOMETER DEV NAME(LOC) BV3N.; GLUCOSE,POINT OF CARE 159 MG/DL (70-110)
[2022-08-21 20:09] VITALS: BP 111/66
[2022-08-21] MEDS: INSULIN LISPRO 100 UNITS/ML SQ PRN (20:38)
[2022-08-21] MEDS: INSULIN GLARGINE,HUM.REC.ANLOG 100 UNITS/ML SQ SCH (20:38)
[2022-08-21 20:41] LABS: GLUCOMETER DEV NAME(LOC) BV3N.; GLUCOSE,POINT OF CARE 174 MG/DL (70-110)
[2022-08-22] MEDS: HALOPERIDOL 5 MG TABLET PO PRN (00:22)
[2022-08-22 00:25] VITALS: BP 140/77
[2022-08-22] MEDS: TraMADol HCL 50 MG TABLET PO PRN ×2 (00:25→20:25)
[2022-08-22 06:21] LABS: GLUCOMETER DEV NAME(LOC) BV3N.; GLUCOSE,POINT OF CARE 123 MG/DL (70-110)
[2022-08-22] MEDS: LEVOTHYROXINE SODIUM 100 MCG TABLET PO SCH (06:24)
[2022-08-22] MEDS: INSULIN LISPRO 100 UNITS/ML SQ SCH ×3 (06:34→16:30)
[2022-08-22] MEDS: INSULIN LISPRO 100 UNITS/ML SQ PRN ×3 (06:34→20:29)
[2022-08-22] MEDS: AmLODIPine BESYLATE 10 MG TABLET PO SCH (08:02)
[2022-08-22] MEDS: LACTOBAC ACID/BULG/BIFID/THERM TABLET PO SCH (08:02)
[2022-08-22] MEDS: MULTIVITAMINS WITH MINERALS, THERAPEUTIC TABLET PO SCH (08:02)
[2022-08-22] MEDS: RisperiDONE 3 MG TABLET PO SCH ×2 (08:02→20:16)
[2022-08-22] MEDS: ENALAPRIL MALEATE 20 MG TABLET PO SCH (08:02)
[2022-08-22] MEDS: DIVALPROEX SODIUM 500 MG DR TABLET PO SCH ×2 (08:02→20:16)
[2022-08-22 09:46] VITALS: BP 117/60
[2022-08-22 11:21] LABS: GLUCOMETER DEV NAME(LOC) BV3N.; GLUCOSE,POINT OF CARE 167 MG/DL (70-110)
[2022-08-22] MEDS: INSULIN GLARGINE,HUM.REC.ANLOG 100 UNITS/ML SQ SCH (20:19)
[2022-08-22 20:34] VITALS: BP 122/71
[2022-08-22 20:51] LABS: GLUCOMETER DEV NAME(LOC) BV3N.; GLUCOSE,POINT OF CARE 184 MG/DL (70-110)
[2022-08-22 22:06] LABS: GLUCOMETER DEV NAME(LOC) POC.BV
[2022-08-23] MEDS ORDERED: INFLUENZA VIRUS VACCINE QVS 2022-23 (6MO+)/PF 60 MCG/0.5 ML SYRINGE IM. ONE (04:15)
[2022-08-23] MEDS: LEVOTHYROXINE SODIUM 100 MCG TABLET PO SCH (06:23)
[2022-08-23 06:26] LABS: GLUCOMETER DEV NAME(LOC) BV3N.; GLUCOSE,POINT OF CARE 79 MG/DL (70-110)
[2022-08-23] MEDS: INSULIN LISPRO 100 UNITS/ML SQ SCH ×3 (06:31→16:38)
[2022-08-23 07:58] VITALS: BP 110/70
[2022-08-23] MEDS: RisperiDONE 3 MG TABLET PO SCH ×2 (09:37→21:17)
[2022-08-23] MEDS: MULTIVITAMINS WITH MINERALS, THERAPEUTIC TABLET PO SCH (09:37)
[2022-08-23] MEDS: LACTOBAC ACID/BULG/BIFID/THERM TABLET PO SCH (09:37)
[2022-08-23] MEDS: ENALAPRIL MALEATE 20 MG TABLET PO SCH (09:37)
[2022-08-23] MEDS: DIVALPROEX SODIUM 500 MG DR TABLET PO SCH ×2 (09:37→21:17)
[2022-08-23] MEDS: AmLODIPine BESYLATE 10 MG TABLET PO SCH (09:37)
[2022-08-23 11:36] LABS: GLUCOMETER DEV NAME(LOC) BV3N.; GLUCOSE,POINT OF CARE 69 MG/DL (70-110)
[2022-08-23 11:56] LABS: GLUCOMETER DEV NAME(LOC) BV3S.; GLUCOSE,POINT OF CARE 136 MG/DL (70-110)
[2022-08-23 16:08] VITALS: BP 106/62
[2022-08-23] MEDS: INSULIN LISPRO 100 UNITS/ML SQ PRN ×2 (16:38→21:26)
[2022-08-23 17:11] LABS: GLUCOMETER DEV NAME(LOC) BV3S.; GLUCOSE,POINT OF CARE 284 MG/DL (70-110)
[2022-08-23 20:04] VITALS: BP 112/64
[2022-08-23 21:00] LABS: GLUCOMETER DEV NAME(LOC) BV3N.; GLUCOSE,POINT OF CARE 154 MG/DL (70-110)
[2022-08-23] MEDS: HALOPERIDOL 5 MG TABLET PO PRN (21:17)
[2022-08-23] MEDS: TraMADol HCL 50 MG TABLET PO PRN (21:17)
[2022-08-23 21:18] VITALS: BP 130/77
[2022-08-23] MEDS: INSULIN GLARGINE,HUM.REC.ANLOG 100 UNITS/ML SQ SCH (21:27)
[2022-08-24] MEDS: LEVOTHYROXINE SODIUM 100 MCG TABLET PO SCH (06:14)
[2022-08-24 06:21] LABS: GLUCOMETER DEV NAME(LOC) BV3N.; GLUCOSE,POINT OF CARE 123 MG/DL (70-110)
[2022-08-24] MEDS: INSULIN LISPRO 100 UNITS/ML SQ SCH ×2 (06:34→12:26)
[2022-08-24] MEDS: INSULIN LISPRO 100 UNITS/ML SQ PRN (06:34)
[2022-08-24 08:11] VITALS: BP 109/61
[2022-08-24] MEDS: DIVALPROEX SODIUM 500 MG DR TABLET PO SCH (08:55)
[2022-08-24] MEDS: RisperiDONE 3 MG TABLET PO SCH (08:55)
[2022-08-24] MEDS: AmLODIPine BESYLATE 10 MG TABLET PO SCH (08:55)
[2022-08-24] MEDS: ENALAPRIL MALEATE 20 MG TABLET PO SCH (08:55)
[2022-08-24] MEDS: LACTOBAC ACID/BULG/BIFID/THERM TABLET PO SCH (08:55)
[2022-08-24] MEDS: MULTIVITAMINS WITH MINERALS, THERAPEUTIC TABLET PO SCH (08:55)
[2022-08-24] MEDS ORDERED: RISP3TAB63 PO (12:25)
[2022-08-24] MEDS ORDERED: DIVA-112 PO (12:25)
[2022-08-24] MEDS ORDERED: INSLAN SQ (12:49)
[2022-08-24] MEDS ORDERED: LEVO125T95 PO (12:49)
[2022-08-24] MEDS ORDERED: ENAL20TA18 PO (12:50)
[2022-08-24] MEDS ORDERED: ACID1TAB13 PO (12:50)
[2022-08-24] MEDS ORDERED: AMLO-258 PO (12:57)
[2022-08-24 14:31] LABS: GLUCOMETER DEV NAME(LOC) BV3S.; GLUCOSE,POINT OF CARE 116 MG/DL (70-110)
== END 2022-08-24 15:23 | disposition home or self-care (01) | DRG 750 ==
LOC: EMS 11:46 → B3A 14:20
PROVIDERS: ADMIT Psychiatry & Neurology Psychiatry; ATTEND Psychiatry & Neurology Psychiatry
DX: F20.0 Paranoid schizophrenia (principal); E11.22 Type 2 diabetes mellitus with diabetic chronic kidney disease; D64.9 Anemia, unspecified; G47.00 Insomnia, unspecified; F17.210 Nicotine dependence, cigarettes, uncomplicated; I12.9 Hypertensive chronic kidney disease with stage 1 through stage 4 chronic kidney disease, or unspecified chronic kidney disease; Z20.822 Contact with and (suspected) exposure to COVID-19; K59.00 Constipation, unspecified; N18.30 Chronic kidney disease, stage 3 unspecified; Z53.20 Procedure and treatment not carried out because of patient's decision for unspecified reasons; Z88.2 Allergy status to sulfonamides
CPT/HCPCS: 80053; 80061; 82140; 82962; 83036; 83735; 84100; 84439; 84443; 85025; 99285; G0480; J1200; J1610; J1630; J1815; J2060